=== PATIENT | female | born 1945 | race Two or more races ===

== ENCOUNTER 2022-11-21 23:08 | Emergency (ER) | payer OTHER ==
[~2022-11-21] VITALS: Ht 149.9 cm; Wt 59.0 kg
[2022-11-22] MEDS ORDERED: TOPROL XL25 M1 PO (00:26)
[2022-11-22] MEDS ORDERED: ISOSORBIDE DINI30 MG PO (00:26)
[2022-11-22] MEDS ORDERED: ZETIA10 MG PO (00:27)
[2022-11-22] MEDS ORDERED: PLAVIX75 MG PO (00:27)
[2022-11-22] MEDS ORDERED: CRESTOR40 MG PO (00:27)
[2022-11-22] MEDS ORDERED: NITRO-TIME2.5 MG PO (00:28)
[2022-11-22] MEDS ORDERED: COQMAX UBIQUIN200 MG PO (00:28)
== END 2022-11-22 12:41 | disposition home or self-care (01) ==
LOC: ER 23:08
DX: K57.92 Diverticulitis of intestine, part unspecified, without perforation or abscess without bleeding (principal)
CPT/HCPCS: 36415; 96372; 99282; J3490